=== PATIENT | male | born 1945 | race Caucasian/White ===

== ENCOUNTER 2017-01-25 02:04 | Emergency (ER) | payer MEDICARE, BC ==
[~2017-01-25] VITALS: Ht 182.9 cm; Wt 98.0 kg
[~2017-01-25 02:04] MED LIST: ADLT ASA LOW81 MG PO; ALTACE10 MG PO; AMLODIPINE10 MG PO; BAYER ASA325 MG OR; BAYER ASA325 MG PO; CLOPIDOGREL75 MG PO; FLOMAX0.4 MG OR; GLIPIZIDE10 MG PO; IRON325 M1 PO; KEFLEX500 MG PO; LANTUS100 MG/ML SC; LORTAB 5 PO; METFORMIN1000 MG PO; SIMVASTATIN40 MG PO; TOPROL XL50 MG PO
[2017-01-25] MEDS ORDERED: ELIQUIS5 MG PO (02:25)
[2017-01-25] MEDS ORDERED: ALLOPURINOL100 MG PO (02:26)
[2017-01-25] MEDS ORDERED: MAXZIDE-2537.5 MG/TA PO (02:27)
[2017-01-25 02:28] LABS: HEMATOCRIT 35.9 % (39.0-50.0); HEMOGLOBIN 11.8 g/dl (14.0-18.0); IMMATURE GRANULOCYTES 0.4 % (0.0-1.0); MEAN CELL VOLUME 91.3 fL CALC (80.0-100.0); MEAN CORPUSCULAR HGB CONC 32.9 g/L CALC (32.0-36.0); NEUT# 7.96 thou/uL (1.82-7.42); RED BLOOD COUNT 3.93 mill/uL (4.70-6.10); RED CELL DISTRI WIDTH 14.8 % (11.5-15.5)
[2017-01-25] MEDS ORDERED: CLONIDINE0.1 MG PO (02:29)
[2017-01-25] MEDS ORDERED: LIPITOR80 M1 PO (02:31)
[2017-01-25] MEDS ORDERED: ASPIRIN81 MG PO (02:32)
[2017-01-25] MEDS ORDERED: FUROSEMIDE20 MG PO (02:33)
[2017-01-25] MEDS ORDERED: TRESIBA FL100 UNIT/M SC (02:35)
[2017-01-25] MEDS ORDERED: NOVOLOG MIX SC (02:36)
[2017-01-25 02:40] LABS: ALBUMIN 3.8 g/dL (3.2-5.0); BILIRUBIN, TOTAL 0.5 mg/dL (0.0-1.4); CALCIUM 8.7 mg/dL (8.4-10.2); CREATININE 1.5 mg/dL (0.7-1.3); POTASSIUM 3.5 mmol/l (3.5-5.1); TOTAL PROTEIN 6.8 g/dL (6.3-8.2)
[2017-01-25 02:48] LABS: INTERNATIONAL NORMALIZED RATIO 1.1 RATIO (0.7-1.3); PROTHROMBIN TIME 12.2 SECONDS (9.0-12.5)
[2017-01-25 03:28] LABS: URINE BILIRUBIN - DIPSTICK NEGATIVE (NEGATIVE); URINE BLOOD DIPSTICK NEGATIVE (NEGATIVE); URINE CLARITY CLEAR; URINE COLOR YELLOW; URINE GLUCOSE - DIPSTICK NEGATIVE (NEGATIVE); URINE KETONE NEGATIVE (NEGATIVE); URINE LEUK ESTERASE NEGATIVE (NEGATIVE); URINE NITRITE - DIPSTICK NEGATIVE (Negative); URINE PROTEIN - DIPSTICK NEGATIVE (NEG-TRACE); URINE UROBILINOGEN - DIPSTICK 0.2 E.U./dL (0.2)
[2017-01-25 05:15] VITALS: BP 119/81
== END 2017-01-25 05:15 ==
LOC: ED 02:04 → ED-I 03:31 → ED 05:15
PROVIDERS: Emergency Medicine
DX: R07.9 Chest pain, unspecified (principal); I48.91 Unspecified atrial fibrillation; R94.31 Abnormal electrocardiogram [ECG] [EKG]; I10 Essential (primary) hypertension; I25.10 Atherosclerotic heart disease of native coronary artery without angina pectoris; Z95.5 Presence of coronary angioplasty implant and graft
CPT/HCPCS: J0282

== ENCOUNTER 2018-09-25 08:00 | Outpatient (REF) | payer MEDICARE, BC ==
[~2018-09-25 08:00] MED LIST changes: +ALLOPURINOL100 MG PO; +ASPIRIN81 MG PO; +CLONIDINE0.1 MG PO; +ELIQUIS5 MG PO; +FUROSEMIDE20 MG PO; +LIPITOR80 M1 PO; +MAXZIDE-2537.5 MG/TA PO; +NOVOLOG MIX SC; +TRESIBA FL100 UNIT/M SC
[2018-09-25 11:26] VITALS: BP 188/79
== END 2018-09-25 13:22 | disposition home or self-care (01) ==
LOC: INF 08:00
PROVIDERS: ATTEND Internal Medicine
DX: D63.1 Anemia in chronic kidney disease (principal); N18.3 Chronic kidney disease, stage 3 (moderate); D50.9 Iron deficiency anemia, unspecified
CPT/HCPCS: Q0138

== ENCOUNTER → 2018-10-02 | Outpatient (REF) | payer MEDICARE, BC ==
--- NOTE | 2018-10-02 10:39 | NUR ---
Patient is here for Procrit injection Current Procrit dose of 10,000 units on 10/02/18. First time on Procrit. Current Hgb on 10/02/18: 10.3g/dL Previous Hgb on 09/18/18: 8.5g/dL Previous Iron study on 10/02/18: 72ug/mL Next Iron Study on 12/30/18 Next Hgb due on 10/16/18 Pt will come back for next dose of 10,000 units on 10/16/18 Notes: Patient came in for his procrit dose. This is the first time patient is receiving procrit through [facility]. Pts BP today was 201/84mmHG. Pt had not taken his medications today. Instructed patient to take his medications as soon as he left today. Otherwise, patient stated that he was feeling good and was not experiencing any side effects. QOL assessment Side effects: No Dose adjustments: No
== END | disposition home or self-care (01) ==
LOC: INF 08:18
PROVIDERS: ATTEND Internal Medicine
DX: D63.1 Anemia in chronic kidney disease (principal); N18.3 Chronic kidney disease, stage 3 (moderate); D50.9 Iron deficiency anemia, unspecified
CPT/HCPCS: J0885

== ENCOUNTER → 2018-10-14 | Outpatient (REF) | payer MEDICARE, BC ==
[2018-10-14 08:38] LABS: MEAN CORPUSCULAR HGB 27.8 pG CALC (26.0-32.0); MEAN CORPUSCULAR HGB CONC 30.7 g/L CALC (32.0-36.0); RED BLOOD COUNT 3.96 mill/uL (4.70-6.10); RED CELL DISTRI WIDTH 21.5 % (11.5-15.5)
[2018-10-14 08:45] LABS: HEMATOCRIT 35.8 % (39.0-50.0); MEAN CELL VOLUME 90.4 fL CALC (80.0-100.0)
== END | disposition home or self-care (01) ==
LOC: LAB 08:04
PROVIDERS: ATTEND Internal Medicine
DX: D63.1 Anemia in chronic kidney disease (principal)

== ENCOUNTER 2018-10-30 09:50 | Outpatient (REF) | payer MEDICARE, BC ==
[2018-10-30 14:55] VITALS: BP 168/70
== END 2018-10-30 15:08 | disposition home or self-care (01) ==
LOC: INF 09:50
PROVIDERS: ATTEND Internal Medicine
DX: D63.1 Anemia in chronic kidney disease (principal); N18.3 Chronic kidney disease, stage 3 (moderate); D50.9 Iron deficiency anemia, unspecified

== ENCOUNTER 2019-02-27 15:05 | Emergency (ER) | payer MEDICARE, BC ==
[~2019-02-27] VITALS: Ht 182.9 cm; Wt 90.0 kg
[2019-02-27 15:32] LABS: HEMATOCRIT 34.7 % (39.0-50.0); HEMOGLOBIN 10.7 g/dl (14.0-18.0); MEAN CELL VOLUME 88.1 fL CALC (80.0-100.0); MEAN CORPUSCULAR HGB 27.2 pG CALC (26.0-32.0); MEAN CORPUSCULAR HGB CONC 30.8 g/L CALC (32.0-36.0); NEUT# 9.32 thou/uL (1.82-7.42); RED BLOOD COUNT 3.94 mill/uL (4.70-6.10); RED CELL DISTRI WIDTH 14.8 % (11.5-15.5)
[2019-02-27 15:55] LABS: INTERNATIONAL NORMALIZED RATIO 1.2 RATIO (0.7-1.3)
[2019-02-27 16:03] LABS: CREATININE 1.7 mg/dL (0.7-1.3); POTASSIUM 3.4 mmol/l (3.5-5.1)
[2019-02-27] MEDS ORDERED: LISINOPRIL20 MG PO (18:22)
[2019-02-27] MEDS ORDERED: GABAPENTIN100 MG PO (18:22)
[2019-02-27] MEDS ORDERED: NOVOLOG FL100 UNIT/M SC (18:36)
[2019-02-27] MEDS ORDERED: HYDRALAZINE10 MG PO (18:36)
[2019-02-27] MEDS ORDERED: CYMBALTA30 MG PO (18:37)
[2019-02-27] MEDS ORDERED: BUMETANIDE2 MG PO (18:37)
[2019-02-27] MEDS ORDERED: KAPSPARGO SPRIN25 MG (18:53)
[2019-02-27 19:01] VITALS: BP 145/80
== END 2019-02-27 19:01 | disposition left against medical advice (07) ==
LOC: ED 15:05 → ED-I 15:14 → ED 15:14 → ED-I 17:10 → ED 19:01
PROVIDERS: Family Medicine
DX: G45.9 Transient cerebral ischemic attack, unspecified (principal); I10 Essential (primary) hypertension; E11.9 Type 2 diabetes mellitus without complications; Z91.19 Patient's noncompliance with other medical treatment and regimen; Z95.5 Presence of coronary angioplasty implant and graft
CPT/HCPCS: Q9967

== ENCOUNTER 2019-04-19 16:33 | Emergency (ER) | payer MEDICARE, BC ==
[~2019-04-19] VITALS: Ht 182.9 cm; Wt 98.0 kg
[~2019-04-19 16:33] MED LIST changes: +BUMETANIDE2 MG PO; +CYMBALTA30 MG PO; +GABAPENTIN100 MG PO; +HYDRALAZINE10 MG PO; +KAPSPARGO SPRIN25 MG; +LISINOPRIL20 MG PO; +NOVOLOG FL100 UNIT/M SC
[2019-04-19 17:11] LABS: IMMATURE GRANULOCYTES 1.2 % (0.0-5.0); MEAN CELL VOLUME 90.4 fL CALC (80.0-100.0); MEAN CORPUSCULAR HGB 28.4 pG CALC (26.0-32.0); MEAN CORPUSCULAR HGB CONC 31.4 g/L CALC (32.0-36.0); NEUT# 12.96 thou/uL (1.82-7.42); RED BLOOD COUNT 2.82 mill/uL (4.70-6.10); RED CELL DISTRI WIDTH 18.7 % (11.5-15.5)
[2019-04-19 17:12] LABS: HEMATOCRIT 25.5 % (39.0-50.0)
[2019-04-19 17:34] LABS: ALBUMIN 3.3 g/dL (3.2-5.0); CREATININE 2.5 mg/dL (0.7-1.3); POTASSIUM 3.2 mmol/l (3.5-5.1); TOTAL PROTEIN 6.4 g/dL (6.3-8.2)
[2019-04-19 17:40] LABS: BILIRUBIN, TOTAL 0.6 mg/dL (0.0-1.4)
[2019-04-19 17:44] LABS: INTERNATIONAL NORMALIZED RATIO 1.3 RATIO (0.7-1.3); PROTHROMBIN TIME 13.6 SECONDS (9.0-12.5)
[2019-04-19] MEDS ORDERED: COLCHICINE0.6 M2 PO (18:04)
[2019-04-19] MEDS ORDERED: RAYALDEE30 MCG PO (18:10)
[2019-04-19] MEDS ORDERED: K-DUR/KLOR-CON20 MEQ PO (18:10)
[2019-04-19] MEDS ORDERED: SUCRALFATE1 GM PO (18:11)
[2019-04-19 18:50] VITALS: BP 104/73
[2019-04-19 18:53] VITALS: BP 104/73
== END 2019-04-19 18:53 | disposition short-term general hospital (02) ==
LOC: ED 16:33
PROVIDERS: Emergency Medicine
PROC: 30233N1 Transfusion of Nonautologous Red Blood Cells into Peripheral Vein, Percutaneous Approach (ICD-10-PCS; principal; 2019-04-19)
DX: K92.2 Gastrointestinal hemorrhage, unspecified (principal); D64.9 Anemia, unspecified; N17.9 Acute kidney failure, unspecified; R06.02 Shortness of breath; D72.829 Elevated white blood cell count, unspecified; I10 Essential (primary) hypertension; E11.9 Type 2 diabetes mellitus without complications; Z79.4 Long term (current) use of insulin; R07.9 Chest pain, unspecified
CPT/HCPCS: P9016; S0164

== ENCOUNTER 2020-01-10 22:53 | Emergency (ER) | payer MEDICARE, BC ==
[~2020-01-10 22:53] MED LIST changes: +APRESOLINE50 MG PO; +COLCHICINE0.6 M2 PO; +DEMADEX10 MG PO; -HYDRALAZINE10 MG PO; -LISINOPRIL20 MG PO; +METOPROL TAR100 MG PO; +NORVASC5 M1 PO; +POTASSIUM CHLO10 MEQ PO; +PROTONIX40 M2 PO; +ROCALTROL0.25 MCG PO; +SUCRALFATE1 GM PO; -TOPROL XL50 MG PO; +ZESTRIL10 MG PO
[2020-01-10] MEDS ORDERED: CEPHALEXIN500 MG PO (23:35)
[2020-01-10 23:36] LABS: HEMOGLOBIN 8.2 g/dl (14.0-18.0); IMMATURE GRANULOCYTES 0.7 % (0.0-5.0); MEAN CELL VOLUME 93.3 fL CALC (80.0-100.0); MEAN CORPUSCULAR HGB 30.7 pG CALC (26.0-32.0); MEAN CORPUSCULAR HGB CONC 32.9 g/dL CAL (32.0-36.0); NEUT# 10.24 thou/uL (1.82-7.42); RED BLOOD COUNT 2.67 mill/uL (4.70-6.10); RED CELL DISTRI WIDTH 14.1 % (11.5-15.5)
[2020-01-10] MEDS ORDERED: FUROSEMIDE20 MG PO (23:36)
[2020-01-10] MEDS ORDERED: HYDROCHLOROT25 MG PO (23:36)
[2020-01-10 23:37] LABS: HEMATOCRIT 24.9 % (39.0-50.0)
[2020-01-10] MEDS ORDERED: COZAAR100 MG PO (23:37)
[2020-01-10] MEDS ORDERED: OZEMPIC2 MG/1.5 M SC (23:38)
[2020-01-10] MEDS ORDERED: MICARDIS H80 MG/25 M PO (23:39)
[2020-01-10 23:47] LABS: ACT PARTIAL THROMBO TIME 36.6 SECONDS (20.0-32.5); ALBUMIN 3.2 g/dL (3.2-5.0); BILIRUBIN, TOTAL 0.7 mg/dL (0.0-1.4); INTERNATIONAL NORMALIZED RATIO 1.1 RATIO (0.7-1.3); POTASSIUM 3.4 mmol/l (3.5-5.1); PROTHROMBIN TIME 11.5 SECONDS (9.0-12.5); TOTAL PROTEIN 6.3 g/dL (6.3-8.2)
[2020-01-11 00:55] VITALS: BP 159/70
[2020-01-11 01:24] VITALS: BP 153/69
[2020-01-11 02:03] VITALS: BP 157/60
== END 2020-01-11 02:20 ==
LOC: ED 22:53
PROC: 30233N1 Transfusion of Nonautologous Red Blood Cells into Peripheral Vein, Percutaneous Approach (ICD-10-PCS; principal; 2020-01-11)
DX: L76.22 Postprocedural hemorrhage of skin and subcutaneous tissue following other procedure (principal); D62 Acute posthemorrhagic anemia; E11.9 Type 2 diabetes mellitus without complications; I10 Essential (primary) hypertension; Y83.8 Other surgical procedures as the cause of abnormal reaction of the patient, or of later complication, without mention of misadventure at the time of the procedure; Z79.01 Long term (current) use of anticoagulants; Z79.4 Long term (current) use of insulin
CPT/HCPCS: P9016

== ENCOUNTER 2020-04-26 21:01 | Inpatient (IN) | payer MEDICARE, BC ==
[~2020-04-26] VITALS: Ht 182.9 cm; Wt 95.5 kg
[~2020-04-26 21:01] MED LIST changes: +CEPHALEXIN500 MG PO; +COZAAR100 MG PO; +HYDROCHLOROT25 MG PO; +MICARDIS H80 MG/25 M PO; +OZEMPIC2 MG/1.5 M SC
[2020-04-26] MEDS ORDERED: METOPROLOL SUC200 MG PO (21:37)
[2020-04-26] MEDS ORDERED: AMITRIPTYLIN25 MG PO (21:39)
[2020-04-26 22:18] LABS: IMMATURE GRANULOCYTES 1.4 % (0.0-5.0); MEAN CORPUSCULAR HGB 30.6 pG CALC (26.0-32.0); MEAN CORPUSCULAR HGB CONC 29.8 g/dL CAL (32.0-36.0); NEUT# 15.74 thou/uL (1.82-7.42); RED BLOOD COUNT 1.86 mill/uL (4.70-6.10); RED CELL DISTRI WIDTH 19.2 % (11.5-15.5)
[2020-04-26 22:21] LABS: HEMATOCRIT 19.1 % (39.0-50.0); HEMOGLOBIN 5.7 g/dl (14.0-18.0); MEAN CELL VOLUME 102.7 fL CALC (80.0-100.0)
[2020-04-26 22:35] LABS: ALBUMIN 3.4 g/dL (3.2-5.0); BILIRUBIN, TOTAL 0.4 mg/dL (0.0-1.4); CREATININE 1.6 mg/dL (0.7-1.3); POTASSIUM 3.7 mmol/l (3.5-5.1); TOTAL PROTEIN 5.9 g/dL (6.3-8.2)
[2020-04-26 23:32] LABS: D-DIMER 0.17 mg/L (0.19-0.60)
[2020-04-26 23:37] LABS: ACT PARTIAL THROMBO TIME 31.4 SECONDS (20.0-32.5); INTERNATIONAL NORMALIZED RATIO 1.3 RATIO (0.7-1.3); PROTHROMBIN TIME 12.4 SECONDS (9.0-12.5)
[2020-04-26 23:39] VITALS: BP 141/57
[2020-04-26 23:48] LABS: URINE BILIRUBIN - DIPSTICK NEGATIVE (NEGATIVE); URINE BLOOD DIPSTICK NEGATIVE (NEGATIVE); URINE COLOR YELLOW; URINE GLUCOSE - DIPSTICK 250 mg/dL (NEGATIVE); URINE KETONE NEGATIVE (NEGATIVE); URINE LEUK ESTERASE NEGATIVE (NEGATIVE); URINE NITRITE - DIPSTICK NEGATIVE (Negative); URINE PROTEIN - DIPSTICK NEGATIVE (NEG-TRACE); URINE SPECIFIC GRAVITY 1.015; URINE UROBILINOGEN - DIPSTICK 0.2 E.U./dL (0.2)
[2020-04-27] VITALS (13 sets, daily range): BP systolic 124–158; BP diastolic 61–79
[2020-04-27 04:53] LABS: HEMATOCRIT 22.2 % (39.0-50.0); MEAN CELL VOLUME 99.6 fL CALC (80.0-100.0); MEAN CORPUSCULAR HGB 30.9 pG CALC (26.0-32.0); MEAN CORPUSCULAR HGB CONC 31.1 g/dL CAL (32.0-36.0); NEUT# 14.52 thou/uL (1.82-7.42); RED BLOOD COUNT 2.23 mill/uL (4.70-6.10)
[2020-04-27 05:03] LABS: CREATININE 1.6 mg/dL (0.7-1.3); POTASSIUM 3.1 mmol/l (3.5-5.1)
[2020-04-27 05:06] LABS: HEMOGLOBIN 6.9 g/dl (14.0-18.0)
[2020-04-27] MEDS ORDERED: TRESIBA FL200 UNIT/M (12:11)
[2020-04-27 14:23] LABS: HEMATOCRIT 25.2 % (39.0-50.0)
[2020-04-28] VITALS (10 sets, daily range): BP systolic 125–175; BP diastolic 64–78
[2020-04-28 04:51] LABS: HEMATOCRIT 24.9 % (39.0-50.0); HEMOGLOBIN 7.8 g/dl (14.0-18.0); MEAN CELL VOLUME 97.3 fL CALC (80.0-100.0); MEAN CORPUSCULAR HGB 30.5 pG CALC (26.0-32.0); MEAN CORPUSCULAR HGB CONC 31.3 g/dL CAL (32.0-36.0); NEUT# 10.37 thou/uL (1.82-7.42); RED BLOOD COUNT 2.56 mill/uL (4.70-6.10); RED CELL DISTRI WIDTH 18.5 % (11.5-15.5)
[2020-04-28 05:14] LABS: ALKALINE PHOSPHATASE 82 u/l (38-126); ANION GAP 11 (6-22 (CALC)); BUN 51 mg/dL (8-23); BUN/CREATININE RATIO 39 (12-20 (CALC)); CARBON DIOXIDE 24 mmol/l (22-30); CHLORIDE 108 mmol/l (95-108); CREATININE 1.3 mg/dL (0.7-1.3); GFR 54 ML/MIN (>=60 (CALC)); GFR FOR AFR.AMER. > 60 ML/MIN (>=60 (CALC)); POTASSIUM 3.7 mmol/l (3.5-5.1); SGOT/AST 22 u/l (19-48); SODIUM 138 mmol/l (137-146); TOTAL PROTEIN 5.3 g/dL (6.3-8.2)
[2020-04-28 05:25] LABS: BILIRUBIN, TOTAL 0.6 mg/dL (0.0-1.4)
[2020-04-28] MEDS ORDERED: GOLYTEL1 PO ×2 (11:55)
[2020-04-28] MEDS ORDERED: PROTONIX40 M2 PO (11:55)
== END 2020-04-28 15:27 | disposition home or self-care (01) | DRG 812 ==
LOC: ED 21:01 → ED-I 22:50 → ED 23:01 → MS2 23:02
PROVIDERS: Family Medicine; Nurse Practitioner; ADMIT Internal Medicine; ATTEND Internal Medicine
PROC: 30233N1 Transfusion of Nonautologous Red Blood Cells into Peripheral Vein, Percutaneous Approach (ICD-10-PCS; principal; 2020-04-27)
PROC: 30233N1 Transfusion of Nonautologous Red Blood Cells into Peripheral Vein, Percutaneous Approach (ICD-10-PCS; 2020-04-27)
PROC: 30233N1 Transfusion of Nonautologous Red Blood Cells into Peripheral Vein, Percutaneous Approach (ICD-10-PCS; 2020-04-28)
DX: D62 Acute posthemorrhagic anemia (principal); K92.2 Gastrointestinal hemorrhage, unspecified; J98.11 Atelectasis; I48.0 Paroxysmal atrial fibrillation; I12.9 Hypertensive chronic kidney disease with stage 1 through stage 4 chronic kidney disease, or unspecified chronic kidney disease; E11.22 Type 2 diabetes mellitus with diabetic chronic kidney disease; N18.3 Chronic kidney disease, stage 3 (moderate); E87.6 Hypokalemia; I25.10 Atherosclerotic heart disease of native coronary artery without angina pectoris; E78.5 Hyperlipidemia, unspecified; K59.00 Constipation, unspecified; M10.9 Gout, unspecified; Z95.5 Presence of coronary angioplasty implant and graft; Z95.0 Presence of cardiac pacemaker; Z79.82 Long term (current) use of aspirin; Z79.4 Long term (current) use of insulin; Z20.828 Contact with and (suspected) exposure to other viral communicable diseases; Z79.01 Long term (current) use of anticoagulants
CPT/HCPCS: P9016; S0164

== ENCOUNTER 2020-05-04 08:32 | Day surgery (SDC) | payer MEDICARE, BC ==
[~2020-05-04] VITALS: Ht 182.9 cm; Wt 96.2 kg
[~2020-05-04 08:32] MED LIST changes: +AMITRIPTYLIN25 MG PO; +GOLYTEL1 PO; +METOPROLOL SUC200 MG PO; +TRESIBA FL200 UNIT/M
[2020-05-04 09:05] LABS: HEMATOCRIT 28.9 % (39.0-50.0); HEMOGLOBIN 8.8 g/dl (14.0-18.0); IMMATURE GRANULOCYTES 0.6 % (0.0-5.0); MEAN CELL VOLUME 94.1 fL CALC (80.0-100.0); MEAN CORPUSCULAR HGB 28.7 pG CALC (26.0-32.0); MEAN CORPUSCULAR HGB CONC 30.4 g/dL CAL (32.0-36.0); NEUT# 10.1 thou/uL (1.82-7.42); RED BLOOD COUNT 3.07 mill/uL (4.70-6.10); RED CELL DISTRI WIDTH 17.2 % (11.5-15.5)
[2020-05-04 09:28] LABS: PROTHROMBIN TIME 10.4 SECONDS (9.0-12.5)
[2020-05-04 09:39] LABS: CREATININE 1.6 mg/dL (0.7-1.3); POTASSIUM 3.6 mmol/l (3.5-5.1)
[2020-05-04 10:41] VITALS: BP 153/75
== END 2020-05-04 11:00 | disposition home or self-care (01) ==
LOC: ENDO 08:32 → ORM 10:00 → ENDO 11:00
PROVIDERS: ATTEND Surgery
PROC: 0DJ08ZZ Inspection of Upper Intestinal Tract, Via Natural or Artificial Opening Endoscopic (ICD-10-PCS; principal; 2020-05-04)
PROC: 0DJD8ZZ Inspection of Lower Intestinal Tract, Via Natural or Artificial Opening Endoscopic (ICD-10-PCS; 2020-05-04)
DX: D50.0 Iron deficiency anemia secondary to blood loss (chronic) (principal); K29.70 Gastritis, unspecified, without bleeding; I12.9 Hypertensive chronic kidney disease with stage 1 through stage 4 chronic kidney disease, or unspecified chronic kidney disease; E11.22 Type 2 diabetes mellitus with diabetic chronic kidney disease; N18.9 Chronic kidney disease, unspecified; I25.10 Atherosclerotic heart disease of native coronary artery without angina pectoris; E78.5 Hyperlipidemia, unspecified; I48.91 Unspecified atrial fibrillation; Z79.4 Long term (current) use of insulin; Z95.5 Presence of coronary angioplasty implant and graft; Z79.01 Long term (current) use of anticoagulants; Z95.0 Presence of cardiac pacemaker; Z86.010 Personal history of colon polyps; Z20.828 Contact with and (suspected) exposure to other viral communicable diseases

== ENCOUNTER 2020-05-05 07:02 | Inpatient (IN) | payer MEDICARE, BC ==
[2020-05-05] VITALS (8 sets, daily range): BP systolic 143–162; BP diastolic 63–79
[~2020-05-05] VITALS: Ht 182.9 cm; Wt 96.2 kg
--- NOTE | 2020-05-05 10:05 | NUR ---
PT ARRIVED TO [facility] ROOM 272 VIA STRETCHER IN STABLE CONDITION ACCOMPAINED BY OR STAFF. PT AMBULATED TO BED WITH STEADY GAIT. PT IS A/O X3. INTRODUCED SELF TO PT AND DISCUSSED POC. RESPIRATIONS ARE EVEN AND UNLABORED WITH NO SIGNS OF DISTRESS NOTED. LUNG SOUNDS ARE CLEAR. HEART RHYTHM IS NORMAL. BOWEL SOUNDS ARE ACTIVE IN ALL QUADRANTS, LAST REPORTED BM 05/05/2020. RADIAL AND PEDAL PULSES ARE STRONG WITH NORMAL CAPILLARY REFILL. #20 IN LAC FLUSHED, SITE APPEARS HEALTHY AND PATENT. PT DENIES OF ANY PAIN OR DISCOMFORTS AT THIS TIME. PT ADDMITTED FROM OR. PT PREVIOUS HAD COLONOSCOPY 05/05/20. PT TO GO BACK TO OR TOMORROW FOR LAPAROSCOPIC ASSSISTED RIGHT HEMICOLECTOMY. PT DENIES ANY PAIN OR DISCOMFORTS AT THIS TIME. PT DENIES ANY ALLERGIES, ALLERGY BAND APPLIED. PT ORIENTED TO ROOM AND CALL LIGHT SYSTEM. ALL SFAETY PRECAUTIONS ARE IN PLACE WITH CALL LIGHT IN REACH. WILL CONTINUE TO MONITOR
[2020-05-05 12:06] LABS: ALBUMIN 3.4 g/dL (3.2-5.0); BILIRUBIN, TOTAL 0.7 mg/dL (0.0-1.4); CREATININE 1.4 mg/dL (0.7-1.3); MAGNESIUM 1.9 mg/dL (1.6-2.3); POTASSIUM 3.6 mmol/l (3.5-5.1); TOTAL PROTEIN 5.9 g/dL (6.3-8.2)
--- NOTE | 2020-05-05 15:28 | NUR ---
PT RESTING IN SEMI FOWLERS POSTIION WATCHING TV WITH AT BEDSIDE. RESPRIATIONS ARE EVEN AND UNLABORED WITH NO SIGNS OF DISTRESS NOTED. IVF RUNNING PER ORDER, SITE APPEARS HEALTHY AND PATENT.PT DENIES ANY PAIN OR DISCOMFORTS AT THIS TIME. ALL SAFETY PRECAUTIONS ARE IN PLACE WITH CALL LIGHT IN REACH. WILL CONTINUE TO MONITOR
--- NOTE | 2020-05-05 16:00 | NUR ---
[employer] ASKED FACUNDO OROZCO IF PT WAS TO BE ON TELE MONITORING. NO ORDERS FOR PT TO BE PLACED ON TELE MONITORING
--- NOTE | 2020-05-05 18:20 | NUR ---
OBTAINED CONSENT FOR LAPAROSCOPIC ASSISTED RIGHT HEMICOLECTOMY. PT VERABALIZED UNDERSTANDING AND STATED "THE DOCTOR SPOKE WITH ME ABOUT IT DOWN STAIRS."
--- NOTE | 2020-05-05 19:35 | NUR ---
PT RESTING IN BED, NO SIGNS OF DISTRESS NOTED, RESP EVEN AND UNLABORED. PT ALERT AND ORIENTED X3, DISCUSSED POC, PT VOICES NO NEEDS OR COMPLAINTS AT THIS TIME, ASSESSMENT COMPLETED, CALL LIGHT IN REACH,CONTINUE TO MONITOR.
--- NOTE | 2020-05-05 20:51 | NUR ---
PT RESTING IN BED ON HIS CELLPHONE, DISCUSSED EVENING MEDS AND INSULIN, PT STATES HE TAKES 24 UNITS OF NOVOLOG, JUICE OFFERED, D5 1/2NS INFUSING. CALL LIGHT IN REACH,CONTINUE TO MONITOR.
--- NOTE | 2020-05-05 23:55 | NUR ---
PT RESTING IN BED, DISCUSSED NPO AFTER MIDNIGHT, PT AGREES, APPLE JUICE PROVIDED AND PO FLUIDS REMOVED. CALL LIGHT IN REACH,CONTINUE TO MONITOR.
[2020-05-06] VITALS (11 sets, daily range): BP systolic 119–153; BP diastolic 63–75
--- NOTE | 2020-05-06 03:56 | NUR ---
PT RESTING IN BED WITH EYES CLOSED, NO SIGNS OF DISTRESS NOTED, RESP EVEN AND UNLABORED. CALL LIGHT IN REACH,CONTINUE TO MONITOR.
[2020-05-06 05:12] LABS: HEMATOCRIT 26.4 % (39.0-50.0); HEMOGLOBIN 8.1 g/dl (14.0-18.0); MEAN CELL VOLUME 93.6 fL CALC (80.0-100.0); MEAN CORPUSCULAR HGB 28.7 pG CALC (26.0-32.0); MEAN CORPUSCULAR HGB CONC 30.7 g/dL CAL (32.0-36.0); RED BLOOD COUNT 2.82 mill/uL (4.70-6.10); RED CELL DISTRI WIDTH 16.8 % (11.5-15.5)
[2020-05-06 05:29] LABS: ANION GAP 9 (6-22 (CALC)); BUN 10 mg/dL (8-23); BUN/CREATININE RATIO 9 (12-20 (CALC)); CARBON DIOXIDE 26 mmol/l (22-30); CHLORIDE 107 mmol/l (95-108); CREATININE 1.2 mg/dL (0.7-1.3); GFR 59 ML/MIN (>=60 (CALC)); GFR FOR AFR.AMER. > 60 ML/MIN (>=60 (CALC)); MAGNESIUM 1.6 mg/dL (1.6-2.3); POTASSIUM 3.2 mmol/l (3.5-5.1); SODIUM 139 mmol/l (137-146)
--- NOTE | 2020-05-06 07:18 | NUR ---
RECIEVED REPORT FROM ADAM HDZ. PT SLEEPING IN SEMI FOLWERS POSITION UPON ENTERING ROOM. PT IS EASY TO AWAKEN. INTRODUCED SELF TO PT AND DISCUSSED POC. PT IS A/O X3. ASSESSMENT AND VITALS COMPLETED AT THIS TIME. BP 144/68, HR 70, O2 98% ON ROOM AIR.RESPIRATIONS ARE EVENA ND UNLABORED WIHT NO SIGNS OF DISTRESS NOTED. LUNG SOUND SARE CLEAR. HEART RHYTHM IS NORMAL. BOWEL SOUND SRE ACTIVE IN ALL QUADRANTS, LAST REPORTED BM 05/05/2020. RADIAL AND PEDAL PULSES ARE STRONG WITH NORMAL CAPILLARY REFILL.#20G IN LAC RUNNING WITH IVF PER ORDER, SITE APPEARS HEALTHY AND PATENT.PT IS SCHEDULED TO GO BACK TO OR AT 0945. PT NPO SINCE MIDNIGHT. PT DENIES ANY PAIN OR DISCOMFORTS AT THIS TIME. ALL SAFETY PRECAUTIONS ARE IN PLACE WIHT CALL LIGHT IN REACH.
--- NOTE | 2020-05-06 08:30 | NUR ---
PT TRANSPORTED TO OR VIA BED IN STABLE CONDITION ACCOMPAINED BY OR STAFF. ANTIBIOTICS AND POTASSIUM SENT WITH OR. REMAINS IN ROOM WAINTING FOR PT .
--- NOTE | 2020-05-06 12:17 | NUR ---
DR MUÑOZ IN ROOM SPEAKING WITH
[2020-05-06 13:20] LABS: HEMOGLOBIN 8.1 g/dl (14.0-18.0); RED BLOOD COUNT 2.71 mill/uL (4.70-6.10)
[2020-05-06 13:21] LABS: HEMATOCRIT 25.5 % (39.0-50.0); MEAN CELL VOLUME 94.1 fL CALC (80.0-100.0); MEAN CORPUSCULAR HGB 29.9 pG CALC (26.0-32.0); MEAN CORPUSCULAR HGB CONC 31.8 g/dL CAL (32.0-36.0); RED CELL DISTRI WIDTH 16.5 % (11.5-15.5)
[2020-05-06 13:38] LABS: ALKALINE PHOSPHATASE 118 u/l (38-126); BILIRUBIN, TOTAL 0.8 mg/dL (0.0-1.4); BUN 9 mg/dL (8-23); BUN/CREATININE RATIO 8 (12-20 (CALC)); CARBON DIOXIDE 22 mmol/l (22-30); CHLORIDE 110 mmol/l (95-108); CREATININE 1.2 mg/dL (0.7-1.3); GFR 59 ML/MIN (>=60 (CALC)); GFR FOR AFR.AMER. > 60 ML/MIN (>=60 (CALC)); SGOT/AST 17 u/l (19-48); SODIUM 137 mmol/l (137-146); TOTAL PROTEIN 4.8 g/dL (6.3-8.2)
[2020-05-06 13:39] LABS: ALBUMIN 2.5 g/dL (3.2-5.0); ANION GAP 9 (6-22 (CALC)); POTASSIUM 4.1 mmol/l (3.5-5.1)
--- NOTE | 2020-05-06 13:51 | NUR ---
PT ARRIVED BACK TO [facility] ROOM 272 VIA BED IN STABLE CONDITION ACCOMPAINED BY OR STAFF. PT IS A/O BUT VERY DROWSY. RESPIRATIONS ARE EVEN AND UNLABORED WITH NO SIGNS OF DISTRESS NOTED. LUNG SOUNDS ARE CLEAR. HEART RHYTHM IS NORMAL. PT PRESENTS WITH 4 SURGICAL SITES. 3 SMALL SURGICAL SIGHTS IN RLQ, LLQ AND UPPER ABD.1 LONG COMING UP FROM NAVEL. DRESSING REMAIN CDI AT THIS TIME. ABD BINDER APPLIED WITH ASSISTANCE FROM OR STAFF. #20 IN LAC RUNNING WITH IVF PER ORDER, SITE APPEARS HEALTHY AND PATENT.#20G IN RFA STARTED BY OR STAFF, POTASSIUM RUNNING PER ORDER, SITE APPEARS HEALTHY AND PATENT. PT COMPLAINS OF "12/10" PAIN IN ABD. DILAUDID ADMINISTERED BY OR STAFF EARLIER. WRITTER INFORMED PT THAT PAIN MEDICATION WAS NOT AVAILABLE YET. PT VERBALIZED UNDERSTANDING. WILSON CATHATER PLACE ON 05/06/20 BY OR STAFF. WILSON CATHATER REMAINS IN PLACE WITH TUBING UNOBSTRUCTED AND FLOWING WITH GARVITY. ALL SAFETY PRECAUTIONS REMAIN IN PLACE WITH CALL LIGHT IN REACH AND AT BEDSIDE. WILL CONTINUE TO MONITOR.
--- NOTE | 2020-05-06 16:00 | NUR ---
PT RESTING IN SEMI FOLWERS POSITION WATCHING TV. RESPIRATIONS ARE EVEN AND UNLABORED WITH NO SIGNS OF DISTRES NOTED. IVF RUNNING PER ORDER, SITE APPEARS HEALTHY AND PATENT. PT IS A/O BUT DROWSY. WILSON CATHATER IN PLACE WITH TUBING UNOBSTRUCTED. ALL SAFETY PRECAUTIONS ARE IN PLACE WITH CALL LIGHT IN REACH. WILL CONTINUE TO MONITOR.
--- NOTE | 2020-05-06 17:01 | NUR ---
HOME MEDICATIONS BROUGHT BY AND SENT TO PHARMACY TO VERIFY
--- NOTE | 2020-05-06 17:28 | NUR ---
PT COMPLAINS OF 8/10 PAIN IN ABD. DILAUDID TO BE ADMINISTERED. RESPIRATIONS ARE EVEN AND UNLABORED WITH NO SIGNS OF DISTRESS NOTED. ALL SAFETY PRECAUTIONS ARE IN PLACE WITH CALL LIGHT IN REACH. WILL CONTINUE TO MONITOR
--- NOTE | 2020-05-06 18:06 | NUR ---
REASESSMENT OF PAIN RESUTLING IN 01/20. RESPIRATIONS ARE EVEN AND UNLABROED WITH NO SIGNS OF DISTRESS NOTED. WILSON CATHATER IN PLACE WITH CALL LIGHT IN REACH. ALL SAEFTY PRECAUTIONS ARE IN PLACE WITH CALL LIGHT IN REACH. WILL CONTINUE TO MONITOR
[2020-05-06 18:19] LABS: HEMATOCRIT 27.9 % (39.0-50.0); HEMOGLOBIN 8.7 g/dl (14.0-18.0); IMMATURE GRANULOCYTES 0.5 % (0.0-5.0); MEAN CELL VOLUME 94.6 fL CALC (80.0-100.0); MEAN CORPUSCULAR HGB 29.5 pG CALC (26.0-32.0); MEAN CORPUSCULAR HGB CONC 31.2 g/dL CAL (32.0-36.0); NEUT# 24.13 thou/uL (1.82-7.42); RED BLOOD COUNT 2.95 mill/uL (4.70-6.10); RED CELL DISTRI WIDTH 17.1 % (11.5-15.5)
[2020-05-06 18:42] LABS: ALBUMIN 2.9 g/dL (3.2-5.0); ALKALINE PHOSPHATASE 142 u/l (38-126); ANION GAP 11 (6-22 (CALC)); BUN 11 mg/dL (8-23); BUN/CREATININE RATIO 9 (12-20 (CALC)); CARBON DIOXIDE 21 mmol/l (22-30); CHLORIDE 109 mmol/l (95-108); CREATININE 1.2 mg/dL (0.7-1.3); GFR 59 ML/MIN (>=60 (CALC)); GFR FOR AFR.AMER. > 60 ML/MIN (>=60 (CALC)); POTASSIUM 4.2 mmol/l (3.5-5.1); SODIUM 137 mmol/l (137-146); TOTAL PROTEIN 5.4 g/dL (6.3-8.2)
[2020-05-06 18:48] LABS: SGOT/AST 31 u/l (19-48)
--- NOTE | 2020-05-06 20:00 | NUR ---
PATIENT IS ALERT AND ORIENTED X3. ABLE TO MAKE NEEDS WARM. SKIN WARM AND DRY. DRESSING WITH ABDOMINAL BINDER IN PLACE. WILSON CATHETER IN PLACE, SECURED AND DRAINING STRAW COLORED URINE TO GRAVITY. DENIES PAIN AT THIS TIME. PATIENT IS FORGETFUL, HAS ASKED FOOD BAGGING MACHINE OPERATOR IF HE HAS GONE TO SURGERY YET. PATIENT HAS BEEN OUT OF OF SURGERY SINCE MY SHIFT. CURRENTLY NPO EXCEPT FOR ICE CHIPS AND SIPS OF WATER WITH MEDICATION. FALL RISK. D5 1/2 NORMAL SALINE INFUSING AT 125CC/HR TO IV ACCESS #20 RIGHT AC. #20 RIGHT FOREARM. BOTH VAD PATENT WITH DRESSING CLEAN DRY AND INTACT. COMPLIANT WITH MEDICATIONS. SCDS IN PLACE. BED IN LOW POSITION. CALL LIGHT WITHIN REACH. PATIENT UP TO CHAIR AT 1999. STILL UP TO CHAIR AT THIS TIME.
--- NOTE | 2020-05-07 00:01 | NUR ---
PATIENT RESTING WITH EYES CLOSED. RESPIRATIONS EASY. NO ACUTE DISTRESS OBSERVED. BED IN LOW POSITION. CALL LIGHT WITHIN REACH.
--- NOTE | 2020-05-07 03:12 | NUR ---
PATIENT RESTING IN BED WITH EYES CLOSED. RESPIRATIONS EASY. O2 2L NC IN PLACE. VAD INFUSING FLUIDS ORDERED. NO COMPLAINTS THIS SHIFT. BED IN LOW POSITION. CALL LIGHT WITHIN REACH.
[2020-05-07 04:46] VITALS: BP 144/71
[2020-05-07 05:01] LABS: HEMATOCRIT 26.6 % (39.0-50.0); HEMOGLOBIN 8.4 g/dl (14.0-18.0); IMMATURE GRANULOCYTES 0.7 % (0.0-5.0); MEAN CORPUSCULAR HGB 29.7 pG CALC (26.0-32.0); MEAN CORPUSCULAR HGB CONC 31.6 g/dL CAL (32.0-36.0); NEUT# 21.64 thou/uL (1.82-7.42); RED BLOOD COUNT 2.83 mill/uL (4.70-6.10); RED CELL DISTRI WIDTH 16.8 % (11.5-15.5)
[2020-05-07 05:27] LABS: CREATININE 1.4 mg/dL (0.7-1.3); POTASSIUM 4.1 mmol/l (3.5-5.1)
--- NOTE | 2020-05-07 07:00 | NUR ---
REPORT RECEIVED FROM CHUCK FLEMING;PT RESTING IN SEMI FOWLERS POSITION;INTRODUCED SELF TO PT AND POC DISCUSSED;RESPIRATIONS EVEN AND UNLABORED ON RA;PT DENIES ANY CURRENT PAIN OR NEEDS;IV FLUIDS INFUSING WITH EASE PER ORDER;ALL SAFETY PRECAUTIONS REMAIN IN PLACE WITH BED IN THE LOWEST POSITION AND CALL LIGHT IN REACH;WILL CONTINUE TO MONITOR
--- NOTE | 2020-05-07 07:17 | NUR ---
AT 0650 WILSON CATHETER DISCONTINUED. TOLERATED WELL. 600CC STRAW URINE IN BAG. ICE CHIPS AT BEDSIDE. IVF INFUSING ORDERED. BED IN LOW POSITION. CALL LIGHT WITHIN REACH.
[2020-05-07 08:04] VITALS: BP 168/80
--- NOTE | 2020-05-07 08:05 | NUR ---
PT RESTING IN SEMI FOWLERS POSITION,A&O X3;PT RE-POSITIONED INTO RECLINER AT THIS TIME;VS OBTAINED AND ASSESSMENT COMPLETED;PT DENIES ANY CURRENT PAIN OR DISCOMFORTS,PAIN SCALE AND REPORTING EDUCATED;PT POD #1 HEMICOLECTOMY;RESPIRATIONS EVEN AND UNLABORED ON RA,CLEAR LUNG SOUNDS;I.S. AT BEDSIDE AND PT EDUCATED ON USAGE 10X PER HOUR;ABDOMEN DISTENDED/SOFT ON PALPATION AND HYPOACTIVE IN ALL 4 QUADRANTS;ABDOMINAL BINDER IN PLACE;X3 SMALL ABDOMINAL INCISIONS NOTED WITH DRESSING CDI AND MIDLINE INCISION NOTED WITH DRESSING CDI;STRONG PEDAL PULSES;SKIN OTHERWISE INTACT;#20G TO LAC INFUSING D5 1/2 NS @ 125ML/HR,SITE APPEARS HEALTHY;#20G TO RFA FLUSHED AND PT;ACCUCHECK 259, PT COVERED WITH SLIDING SCALE NOVOLOG PER ORDER;NPO DIET REINFORCED;PT DENIES ANY ADDITIONAL NEEDS AT THIS TIME AND IS ENCOURAGED TO CALL FOR ASSISTANCE IF NEEDED;FALL PRECAUTIONS IN PLACE WITH CALL LIGHT IN REACH;WILL CONTINUE TO MONITOR
--- NOTE | 2020-05-07 08:39 | NUR ---
AT BEDSIDE DISCUSSING POC.
[2020-05-07 10:55] VITALS: BP 144/63
--- NOTE | 2020-05-07 11:10 | NUR ---
PT RESTING IN RECLINER WITH SPOUSE AT BEDSIDE;RESPIRATIONS EVEN AND UNLABORED ON RA;PT DENIES ANY CURRENT PAIN OR DISCOMFORTS;IV SITE REMAINS PATENT INFUSING D5 1/2 NS WITH EASE PER ORDER;ACCUCHECK 246, PT COVERED WITH SLIDING SCALE NOVOLOG PER ORDER;PT SPOUSE PROVIDED TRESIBA AND NOCOLOG HOME FLEX PENS WHICH WERE PLACED IN MED ROOM FOR PHARMACY VERIFICATION;NPO DIET REMAINS AT THIS TIME;ASSESSMENT UNCHANGED;PT DENIES ANY ADDITIONAL NEEDS;ENCOURAGED TO CALL FOR ASSISTANCE IF NEEDED;FALL PRECAUTIONS IN PLACE WITH CALL LIGHT IN REACH;WILL CONTINUE TO MONITOR
--- NOTE | 2020-05-07 14:34 | NUR ---
AT BEDSIDE DISCUSSING POC.
[2020-05-07 15:17] VITALS: BP 147/71
--- NOTE | 2020-05-07 15:20 | NUR ---
PT RESTING IN SEMI FOWLERS POSITION;RESPIRATIONS EVEN AND UNLABORED ON RA;PT DENIES ANY CURRENT PAIN OR DISCOMFORTS;ABDOMINAL DRESSINGS REMAIN CDI WITH ABDOMINAL BINDER IN PLACE;IV FLUIDS RUNNING INTO RFA AT THIS TIME PER REQUEST BY PATIENT;#20G TO LAC REMAINS PATENT;PT DENIES ANY ADDITIONAL NEEDS AT THIS TIME;ENCOURAGED TO CALL FOR ASSISTANCE IF NEEDED;FRESH ICE CHIPS PROVIDED AT THIS TIME;CALL LIGHT IN REACH;WILL CONTINUE TO MONITOR
[2020-05-07 19:17] VITALS: BP 147/83
--- NOTE | 2020-05-08 01:25 | NUR ---
Patient in bed throughout shift, resp. even and unlabored. No SOB noted. Resident self administer Novolog at bedtime with results of 227. On IV ABT, no adverse reactions noted. IV site in ZEINA with D51/2NS running and IV site in LFA saline lock. NPO. SCD in place of BLE. Abdomen bindr in place with dressing sites on abdomen. Fluids encouraged. Safety measures in place with call light in reach.
[2020-05-08 04:00] VITALS: BP 149/71
[2020-05-08 06:33] LABS: MEAN CELL VOLUME 95.6 fL CALC (80.0-100.0); MEAN CORPUSCULAR HGB 29.5 pG CALC (26.0-32.0); MEAN CORPUSCULAR HGB CONC 30.9 g/dL CAL (32.0-36.0); NEUT# 24.37 thou/uL (1.82-7.42); RED BLOOD COUNT 1.83 mill/uL (4.70-6.10)
[2020-05-08 06:45] LABS: HEMATOCRIT 17.5 % (39.0-50.0); HEMOGLOBIN 5.4 g/dl (14.0-18.0)
--- NOTE | 2020-05-08 06:47 | NUR ---
Lab was unnale to collect blood from patient. Blood collect from IV site on Left antecubital site. Request redraw Hgb with result from lab of critical result Hgb 5.4 and last result 05/07/2020 of Hgb 8.4. Lab notified.
[2020-05-08 06:56] LABS: ALBUMIN 2.6 g/dL (3.2-5.0); BILIRUBIN, TOTAL 0.6 mg/dL (0.0-1.4); CREATININE 1.4 mg/dL (0.7-1.3); POTASSIUM 3.5 mmol/l (3.5-5.1)
--- NOTE | 2020-05-08 07:00 | NUR ---
REPORT RECEIVED FROM CHUCK NUNES;PT OOB RESTING IN RECLINER;INTRODUCED SELF TO PT AND POC DISCUSSED;RESPIRATIONS EVEN AND UNLABORED ON RA;PT DENIES ANY CURRENT PAIN OR NEEDS;NPO DIET REINFORCED;PT ENCOURAGED TO CALL FOR ASSISTANCE IF NEEDED;CALL LIGHT IN REACH;WILL CONTINUE TO MONITOR
[2020-05-08 07:58] LABS: IMMATURE GRANULOCYTES 0.7 % (0.0-5.0); MEAN CELL VOLUME 96.8 fL CALC (80.0-100.0); MEAN CORPUSCULAR HGB 29.6 pG CALC (26.0-32.0); MEAN CORPUSCULAR HGB CONC 30.5 g/dL CAL (32.0-36.0); NEUT# 22.36 thou/uL (1.82-7.42); RED BLOOD COUNT 2.84 mill/uL (4.70-6.10); RED CELL DISTRI WIDTH 17.1 % (11.5-15.5)
[2020-05-08 08:05] LABS: ALBUMIN 3.1 g/dL (3.2-5.0); BILIRUBIN, TOTAL 0.8 mg/dL (0.0-1.4); CREATININE 1.5 mg/dL (0.7-1.3); POTASSIUM 3.7 mmol/l (3.5-5.1); TOTAL PROTEIN 5.9 g/dL (6.3-8.2)
[2020-05-08 08:06] LABS: HEMATOCRIT 27.5 % (39.0-50.0)
[2020-05-08 08:07] LABS: HEMOGLOBIN 8.4 g/dl (14.0-18.0)
[2020-05-08 08:50] VITALS: BP 167/71
--- NOTE | 2020-05-08 08:50 | NUR ---
PT RESTING IN RECLINER,A&O X3;VS OBTAINED AND ASSESSMENT COMPLETED;PT DENIES ANY CURRENT PAIN OR DISCOMFORTS,PAIN SCALE AND REPORTING EDUCATED;PT POD #2 HEMICOLLECTOMY;RESPIRATIONS EVEN AND UNLABORED ON RA,CLEAR LUNG SOUNDS;I.S. AT BEDSIDE AND PT EDUCATED ON USE, ENCOURAGED 10X PER HOUR;ABDOMEN DISTENDED/SOFT ON PALPATION AND ACTIVE IN ALL 4 QUADRANTS;DRY DRESSING CHANGED TO ABDOMEN PER ORDER, 20 MILI NOTED INTACT;ABDOMINAL BINDER IN PLACE;STRONG PEDAL PULSES;#20G TO RFA INFUSING D5 1/2 NS @ 125ML/HR,SITE APPEARS HEALTHY;#20G TO LAC FLUSHED AND PATENT,SITE APPEARS HEALTHY;ACCUCHECK 122;NPO DIET REINFORCED;PT DENIES ANY ADDITIONAL NEEDS AT THIS TIME AND IS ENCOURAGED TO CALL FOR ASSISTANCE IF NEEDED;FALL PRECAUTIONS IN PLACE WITH CALL LIGHT IN REACH;WILL CONTINUE TO MONITOR
--- NOTE | 2020-05-08 10:01 | NUR ---
AT BEDSIDE DISCUSSING POC.
--- NOTE | 2020-05-08 10:08 | NUR ---
AT BEDSIDE DISCUSSING POC.
[2020-05-08 10:30] VITALS: BP 150/71
--- NOTE | 2020-05-08 12:00 | NUR ---
PT OOB RESTING IN RECLINER;RESPIRATIONS REMAIN EVEN AND UNLABORED ON RA;PT DENIES ANY CURRENT PAIN OR NEEDS;ABDOMINAL DRESSINGS AND BINDER REMAIN IN PLACE;IV FLUIDS CONTINUE TO INFUSE TO RFA PER ORDER;ACCUCHECK 111;PT TOLERATED CLEAR LIQUID DIET WELL;ASSESSMENT REMAINS UNCHANGED AT THIS TIME;ENCOURAGED TO CALL FOR ASSISTANCE IF NEEDED;FALL PRECAUTIONS IN PLACE WITH CALL LIGHT IN REACH;WILL CONTINUE TO MONITOR
--- NOTE | 2020-05-08 12:21 | NUR ---
PT AMBULATING THE HALLWAY WITH A STEADY GAIT,WALKER, AND X1 ASSIST.
[2020-05-08 15:00] VITALS: BP 177/75
[2020-05-08 16:09] VITALS: BP 150/67
--- NOTE | 2020-05-08 16:10 | NUR ---
PT RESTING IN SEMI FOWLERS POSITION;RESPIRATIONS EVEN AND UNLABORED ON RA;PT DENIES ANY CURRENT PAIN OR NEEDS;IV FLUIDS CONTINUE TO INFUSE PER ORDER;PT RE-POSITIONED INTO RECLINER PER REQUEST;PT DENIES ANY ADDITIONAL NEEDS AND IS ENCOURAGED TO CALL FOR ASSISTANCE;CALL LIGHT IN REACH;WILL CONTINUE TO MONITOR
[2020-05-08 19:00] VITALS: BP 177/79
--- NOTE | 2020-05-08 19:35 | NUR ---
1935-PT SITTING IN CHAIR. NO S/S OF DISTRESS. PT ALERT AND ORIENTED. DENIES ANY NEEDS AT THIS TIME. ASSESSMENT COMPLETED. BED LOW AND LOCKED. CALL LIGHT AND PHONE WITHIN REACH. PT STABLE. WILL CONTINUE TO MONITOR.
--- NOTE | 2020-05-09 00:10 | NUR ---
0010-PT LYING IN BED, ASLEEP. NO S/S OF DISTRESS. BED LOW AND LOCKED. CALL LIGHT AND PHONE WITHIN REACH. PT STABLE. WILL CONTINUE TO MONITOR.
[2020-05-09 04:00] VITALS: BP 148/57
--- NOTE | 2020-05-09 04:15 | NUR ---
0415-PT LYING IN BED SEMI-AWAKE. URINAL EMPTIED. 300 CC CLEAR YELLOW URINE DEPOSITED IN TOILET. NO S/S OF DISTRESS. BED LOW AND LOCKED. CALL LIGHT AND PHONE WITHIN REACH. PT STABLE. WILL CONTINUE TO MONITOR.
--- NOTE | 2020-05-09 06:35 | NUR ---
0635-UPKEEP WORKER REPORTED TO ME THAT PT BLOOD GLUCOSE LEVEL IS 46. I IMMEDIATELY INTERVENED AND ASSESSED PT. I GAVE HIM 8 OZ APPLE JUICE RIGHT AWAY. PT STATES, "I FEEL FINE." NO SYMPTOMS. I WILL REASSESS BLOOD GLUCOSE IN 15 MINUTES. BED LOW AND LOCKED. CALL LIGHT AND PHONE WITHIN REACH. PT STABLE. WILL MONITOR.
--- NOTE | 2020-05-09 07:00 | NUR ---
REPORT RECEIVED FROM CHUCK WHITMORE;PT RESTING IN SEMI FOWLERS POSITION;RESPIRATIONS EVEN AND UNLABORED ON RA;PT DENIES ANY CURRENT PAIN OR NEEDS;ACCUCHECK 41, PT CURRENTLY RECEIVING DEXTROSE;PT REMAINS ASYMPTOMATIC AT THIS TIME;PT DENIES ANY CURRENT NEEDS AND IS ENCOURAGED TO CALL FOR ASSISTANCE IF NEEDED;FALL PRECAUTIONS IN PLACE WITH BED IN THE LOWEST POSITION AND CALL LIGHT IN REACH;WILL CONTINUE TO MONITOR
--- NOTE | 2020-05-09 07:09 | NUR ---
0655-PT BLOOD GLUCOSE DROPPED TO 41 FROM 46. I ADMINISTERED A BOLUS OF DEXTROSE. I GAVE REPORT TO [facility] DAY SHIFT NURSE, TIBURCIO. HE WILL HAVE HIS BLOOD GLUCOSE REASSESSED SOON THE BOLUS IS INFUSED.
[2020-05-09 08:15] VITALS: BP 151/71
--- NOTE | 2020-05-09 08:15 | NUR ---
PT RESTING AT BEDSIDE,A&O X3 AND NOTABLY DROWSY;VS OBTAINED AND ASSESSMENT COMPLETED;PT DENIES ANY CURRENT PAIN OR DISCOMFORTS,PAIN SCALE AND REPORTING EDUCATED;PT POD #3 HEMICOLLECTOMY;RESPIRATIONS SHALLOW ON RA,CLEAR LUNG SOUNDS;I.S. AT BEDSIDE AND PT ENCOURAGED USE 10X PER HOUR;ABDOMEN DISTENDED/SOFT ON PALPATION AND ACTIVE IN ALL 4 QUADRANTS;PT HAVING GAS BUT NO BM YET;ABDOMINAL DRESSINGS X4 CDI AND ABDOMINAL BINDER IN PLACE;STRONG PEDAL PULSES;SKIN INTACT;#20G TO LAC INFUSING D5 1/2 NS @ 75ML/HR,SITE APPEARS HEALTHY;ACCUCHECK 142 AT THIS TIME;PT DENIES ANY ADDITIONAL NEEDS AND IS ENCOURAGED TO CALL FOR ASSISTANCE;CALL LIGHT IN REACH;WILL CONTINUE TO MONITOR
--- NOTE | 2020-05-09 11:15 | NUR ---
PT RESTING IN SEMI FOWLERS POSITION;RESPIRATIONS EVEN AND UNLABORED ON RA;PT REPORTS FEELING BETTER AFTER TAKING A NAP;PT DENIES ANY CURRENT PAIN OR DISCOMFORTS;ABDOMINAL BINDER AND DRESSINGS IN PLACE AND INTACT;IV FLUIDS CONTINUE TO INFUSE WITH EASE PER ORDER;ACCUCHECK 198, PT COVERED WITH SLIDING SCALE NOVOLOG PER ORDER;PT DENIES ANY ADDITIONAL NEEDS AT THIS TIME;ENCOURAGED TO CALL FOR ASSISTANCE IF NEEDED;FALL PRECAUTIONS REMAIN IN PLACE WITH BED IN THE LOWEST POSITION AND CALL LIGHT IN REACH;WILL CONTINUE TO MONITOR
--- NOTE | 2020-05-09 12:11 | NUR ---
AT BEDSIDE DISCUSSING POC.
[2020-05-09 15:00] VITALS: BP 155/78
--- NOTE | 2020-05-09 15:20 | NUR ---
PT AMBULATING HALLWAY WITH A STEADY GAIT,WALKER AND 1 PERSON ASSIST;SPOUSE AT SIDE;RESPIRATIONS EVEN AND UNLABORED ON RA;PT DENIES ANY CURRENT PAIN OR DISCOMFORTS;PT REPORTS LARGE BOWEL MOVEMENT;IV SITE PATENT;PT RE-POSITIONED IN BED AT THIS TIME;PT DENIES ANY ADDITIONAL NEEDS AT THIS TIME;ENCOURAGED TO CALL FOR ASSISTANCE IF NEEDED;FALL PRECAUTIONS REMAIN IN PLACE WITH CALL LIGHT IN REACH;WILL CONTINUE TO MONITOR
[2020-05-09 19:00] VITALS: BP 169/74
--- NOTE | 2020-05-09 19:07 | NUR ---
PT REPORTS ABDOMINAL PAIN RATING 5/10 ON THE PAIN SCALE AND REQUESTS PAIN MEDICATION,PT MEDICATED WITH PRN PERCOCET 5MG PO AT THIS TIME;PT DENIES ANY ADDITIONAL NEEDS;ENCOURAGED TO CALL FOR ASSISTANCE IF NEEDED;CALL LIGHT IN REACH;WILL CONTINUE TO MONITOR
--- NOTE | 2020-05-09 19:30 | NUR ---
PATIENT IS ALERT AND ORIENTED X3. ABLE TO MAKE NEEDS KNOWN. RESPIRATIONS EASY ON ROOM AIR. SKIN WARM AND DRY. DRESSING AND ABDOMINAL BINDER CLEAN DRY AND IN PLACE. HAS HAD BM AND PASSING FLATULANCE. STANDBY ASSIST WITH WALKER. #20 r ac PATENT AND SALINE LOCKED WITH DRESSING CLEAN DRY AND INTACT. C/O PAIN 12/20. WAS MEDICATED JUST BEFORE MY SHIFT. PERCOCET HAS NOT TAKEN EFFECT YET. BED IN LOW POSITION. CALL LIGHT WITHIN REACH.
--- NOTE | 2020-05-10 | NUR ---
PATIENT RESTING WITH EYES CLOSED. RESPIRATIONS EASY. BED IN LOW POSITION. CALL LIGHT WITHIN REACH.
[2020-05-10 04:00] VITALS: BP 171/74
--- NOTE | 2020-05-10 04:46 | NUR ---
PATIENT RESTING WITH EYES CLOSED. RESPIRATIONS EASY ON ROOM AIR. BED IN LOW POSITION. CALL LIGHT WITHIN REACH.
[2020-05-10 07:32] VITALS: BP 155/71
--- NOTE | 2020-05-10 07:32 | NUR ---
RECIEVED REPORT FROM Mack RICHARDSON RN. PT SLEEPING IN LOW FOWLERS POSITION UPON ENTERING ROOM. PT EASY TO AWAKEN. INTRODUCED SELF TO PT AND DISCUSSED POC. ASESSMENT AND VITALS COMPLETED AT THIS TIME. BP 155/71, HR 65, O2 97% ON ROOM AIR. RESPIRATIONS ARE EVEN AND UNLABORED WITH NO SIGNS OF DISTRESS NOTED.LUNG SOUNDS ARE CLEAR. HEART RHYTHM IS NORMAL. BOWEL SOUND SARE ACTIVE IN ALL QUADRANTS, LAST REPORTED BM 05/09/20. RADIAL AND PEDAL PULSES ARE STRONG WITH NORMAL CAPILLARY REFILL. #20 IN LAC FLUSHED, SITE APPEARS HEALTHY AND PATENT. PT PRESENTS WITH ONE MIDLINE SURGICAL INCISION AND 3 SMALL SURGICAL INCISIONS. DRESSING REMAIN CDI WITH ABD BINDER IN PLACE. PT COMPLAINS OF 5/410 BURNING IN ABD. PT TO BE MEDICATED PER EMAR. PT DENIES OF ANY ADDITIONAL NEEDS AT THIS TIME. ALL SAFETY PRECAUTIONS ARE IN PLACE WIHT CALL LIGHT IN REACH. WILL CONTINUE TO MONITOR
[2020-05-10 08:36] LABS: HEMATOCRIT 30.5 % (39.0-50.0); HEMOGLOBIN 9.5 g/dl (14.0-18.0); MEAN CELL VOLUME 93.3 fL CALC (80.0-100.0); MEAN CORPUSCULAR HGB 29.1 pG CALC (26.0-32.0); MEAN CORPUSCULAR HGB CONC 31.1 g/dL CAL (32.0-36.0); RED BLOOD COUNT 3.27 mill/uL (4.70-6.10); RED CELL DISTRI WIDTH 16.5 % (11.5-15.5)
[2020-05-10 08:51] LABS: ANION GAP 11 (6-22 (CALC)); BUN 14 mg/dL (8-23); BUN/CREATININE RATIO 11 (12-20 (CALC)); CARBON DIOXIDE 26 mmol/l (22-30); CHLORIDE 104 mmol/l (95-108); CREATININE 1.3 mg/dL (0.7-1.3); GFR 54 ML/MIN (>=60 (CALC)); GFR FOR AFR.AMER. > 60 ML/MIN (>=60 (CALC)); POTASSIUM 3.6 mmol/l (3.5-5.1); SODIUM 138 mmol/l (137-146)
[2020-05-10 09:04] VITALS: BP 155/71
[2020-05-10] MEDS ORDERED: PERCOCET1 TA4 PO (10:08)
[2020-05-10] MEDS ORDERED: ZOFRAN4 MG/TAB PO (10:08)
--- NOTE | 2020-05-10 12:08 | NUR ---
PT SITTING UP ON SIDE OF BED UPON ENTERING ROOM.PT IS A/O X3. DISCHARGE PAPER WORK COMPLETED. PT REQUEST TO WAIT FOR TO EDUCATED ON DISCHARGE PAPERWORK. AWAITING FOR FOR EDUCTAED ON DISCHARGE PAPERWORK. ALL SFAETY PRECAUTIONS ARE IN PLACE WITH CALL LIGHT IN REACH. WILL CONTINUE TO MONITOR
--- NOTE | 2020-05-10 13:10 | NUR ---
PT EDUCATED ON DISCHARGE PAPERWORK AND NEW MEDCATION PERCOCET AND ZOFRAN. PT VERBALIZED UNDERSTANDING. IV REMOVED WITH CATATHER STILL INTACT. PT TOLERATED WELL. ALL SAFETY PRECAUTIONS ARE IN PLACE WITH CALL LIGHT IN REACH. WILL CONTINUE TO MONITOR
--- NOTE | 2020-05-10 13:13 | NUR ---
Discharge instructions given. Patient verbalizes understanding of same. Discharged in stable condition via Wheelchair to Home with staff. All belongings sent with pt. PT DISCHARGE WITH DISCHARGED VIA WHEELCHAIR IN STABLE CONDITION ACCOMPAINED BY GREGORY LIU. PT DISCHARGE WITH ALL DISCHARGE PAPERWORK AND HOME MEDICATIONS.
== END 2020-05-10 13:12 | disposition home or self-care (01) | DRG 330 ==
LOC: ENDO 07:02 → ORM 08:00 → MS2 09:25 → ENDO 10:05 → MS2 05-06 15:40
PROVIDERS: Internal Medicine; Nurse Practitioner; ADMIT Surgery; ATTEND Surgery
PROC: 0DBC8ZX Excision of Ileocecal Valve, Via Natural or Artificial Opening Endoscopic, Diagnostic (ICD-10-PCS; 2020-05-05)
PROC: 0DBL8ZX Excision of Transverse Colon, Via Natural or Artificial Opening Endoscopic, Diagnostic (ICD-10-PCS; 2020-05-05)
PROC: 0DTF0ZZ Resection of Right Large Intestine, Open Approach (ICD-10-PCS; principal; 2020-05-06)
DX: D12.0 Benign neoplasm of cecum (principal); K92.2 Gastrointestinal hemorrhage, unspecified; K57.30 Diverticulosis of large intestine without perforation or abscess without bleeding; D50.0 Iron deficiency anemia secondary to blood loss (chronic); D17.5 Benign lipomatous neoplasm of intra-abdominal organs; K63.5 Polyp of colon; I12.9 Hypertensive chronic kidney disease with stage 1 through stage 4 chronic kidney disease, or unspecified chronic kidney disease; E11.22 Type 2 diabetes mellitus with diabetic chronic kidney disease; E11.649 Type 2 diabetes mellitus with hypoglycemia without coma; N18.3 Chronic kidney disease, stage 3 (moderate); I25.10 Atherosclerotic heart disease of native coronary artery without angina pectoris; I48.0 Paroxysmal atrial fibrillation; E78.5 Hyperlipidemia, unspecified; Z79.01 Long term (current) use of anticoagulants; Z87.891 Personal history of nicotine dependence; Z79.4 Long term (current) use of insulin; Z95.0 Presence of cardiac pacemaker; Z95.5 Presence of coronary angioplasty implant and graft; D64.9 Anemia, unspecified; R06.02 Shortness of breath; R53.1 Weakness; K29.70 Gastritis, unspecified, without bleeding; N18.9 Chronic kidney disease, unspecified; I48.91 Unspecified atrial fibrillation; Z86.010 Personal history of colon polyps; Z20.828 Contact with and (suspected) exposure to other viral communicable diseases
CPT/HCPCS: J0131; J1100

== ENCOUNTER 2020-07-03 15:23 | Inpatient (IN) | payer MEDICARE, BC ==
[~2020-07-03] VITALS: Ht 182.9 cm; Wt 92.0 kg
[~2020-07-03 15:23] MED LIST changes: +PERCOCET1 TA4 PO; +ZOFRAN4 MG/TAB PO
--- NOTE | 2020-07-03 15:23 | NUR ---
PATIENT TO ROOM VIA EMS STRETCHER. PATIENT ON 3L NC. MD REQUESTING PT HAVE ABG ON ROOM AIR. SP02 90% ON ROOM AIR.
--- NOTE | 2020-07-03 16:00 | NUR ---
PATIENT RESTING IN STRETCHER IN NAD AND DENIES ANY NEEDS. PATIENT IS AWARE OF PLAN OF CARE AND WAIT TIME.
[2020-07-03 16:03] LABS: HEMATOCRIT 38.3 % (39.0-50.0); HEMOGLOBIN 12.5 g/dl (14.0-18.0); IMMATURE GRANULOCYTES 0.5 % (0.0-5.0); MEAN CORPUSCULAR HGB 29.7 pG CALC (26.0-32.0); MEAN CORPUSCULAR HGB CONC 32.6 g/dL CAL (32.0-36.0); NEUT# 5.53 thou/uL (1.82-7.42); RED BLOOD COUNT 4.21 mill/uL (4.70-6.10)
--- NOTE | 2020-07-03 16:25 | NUR ---
IV ABX AND FLUIDS INITITATED TO LAC SITE. INFUSING WITHOUT DIFFICULTY. REPEAT ACCUCHECK COMPLETED-- 153. DR RAYMUNDO AND JAIME PATINO AWARE. PT RESTING ON STRETCHER WITH NASAL CANNULA IN PLACE @ 3L VIA NC SAO2 93-94% PLAN OF CARE DISCUSSED WITH PT. VERBALIZED UNDERSTANDING. DENIES ANY NEEDS. CALL ANGEL AWAD.
[2020-07-03 16:32] LABS: ALBUMIN 3.6 g/dL (3.2-5.0); BILIRUBIN, TOTAL 1.1 mg/dL (0.0-1.4); CREATININE 1.9 mg/dL (0.7-1.3); POTASSIUM 2.9 mmol/l (3.5-5.1); TOTAL PROTEIN 7.2 g/dL (6.3-8.2)
[2020-07-03 16:43] LABS: C-REACTIVE PROTEIN 15.7 mg/dL (0-0.9)
--- NOTE | 2020-07-03 17:20 | NUR ---
PATIENT RESTING IN STRETCHER IN NAD, SP02 93% ON 3L NC. PATIENT AWARE OF PENDING RESULTS AND WAIT TIME. IV ABX INFUSING WITH NO DIFFICULTY. RESP RATE OF 22
--- NOTE | 2020-07-03 18:00 | NUR ---
MD AT BEDSIDE TO DISCUSS RESULTS AND PLAN FOR ADMISSION.
--- NOTE | 2020-07-03 18:48 | NUR ---
PATIENT REPORT TO CHUCK ELIZONDO.
--- NOTE | 2020-07-03 18:50 | NUR ---
ATTEMPTED TO CALL PATIENT REPORT, NURSE NOT HERE AT THIS TIME.
--- NOTE | 2020-07-03 19:11 | NUR ---
ATTEMPTED TO CALL REPORT, NURSE UNABLE TO AT THIS TIME.
--- NOTE | 2020-07-03 19:17 | NUR ---
HAND OFF REPORT RECEIVED FROM SHANICE, PATIENT AWAITING INPATIENT BED.
--- NOTE | 2020-07-03 19:19 | NUR ---
TELEPHONE REPORT RECEIVED DAVID RICHARDSON RN IN ED, ROOM 283 ASSIGNED AND PREPARED TO RECEIVE PT.
--- NOTE | 2020-07-03 19:21 | NUR ---
HAND OFF REPORT GIVEN TO LEI. PATIENT TO INPATIENT TREATMENT ROOM.
--- NOTE | 2020-07-03 19:34 | NUR ---
PT ARRIVES TO UNIT AT 1934 VIA STRETCHER, ACCOMPANIED BY Cooper RICHARDSON RN, ADMITTED TO ROOM 283. PT AMBULATORY TO BED. ORIENTED TO UNIT AND ROOM. CALL JENKINS WITHIN REACH, AGREES TO CALL PRN.
[2020-07-03 19:35] VITALS: BP 120/81
--- NOTE | 2020-07-03 22:45 | NUR ---
ADMISSION ASSESMENT COMPLETE. SCHEDULED MEDICATION ADMINSTERED, SEE E-MAR. PLAN OF CARE REVIEWED, PT VERBALIZES UNDERSTANDING AND DENIES QUESTIONS. FRESH WATER AND SODA PROVIDED. PT DENIES FURTHER NEEDS AT THIS TIME. CALL JENKINS WITHIN REACH, AGREES TO CALL PRN.
[2020-07-04] VITALS: BP 166/78
--- NOTE | 2020-07-04 02:45 | NUR ---
PT APPEARS TO BE SLEEPING COMFORTABLY, LAYING IN BED WITH EYES CLOSED, RESPIRATIONS REGULAR AND UNLABORED, NO APPARENT DISTRESS, CALL JENKINS REMAINS WITHIN REACH.
[2020-07-04 04:50] VITALS: BP 132/75
[2020-07-04 05:51] LABS: HEMATOCRIT 42.5 % (39.0-50.0); HEMOGLOBIN 13.4 g/dl (14.0-18.0); IMMATURE GRANULOCYTES 0.9 % (0.0-5.0); MEAN CORPUSCULAR HGB 28.7 pG CALC (26.0-32.0); MEAN CORPUSCULAR HGB CONC 31.5 g/dL CAL (32.0-36.0); NEUT# 4.54 thou/uL (1.82-7.42); RED BLOOD COUNT 4.67 mill/uL (4.70-6.10)
--- NOTE | 2020-07-04 06:17 | NUR ---
PT RESTING IN BED COMFORTABLY, PHYSICAL ASSESMENT REMAINS GROSSLY UNCHANGED FROM BASELINE. HEMODYNAMICS STABLE. PT DENIES NEEDS AT THIS TIME. CALL JENKINS WITHIN REACH, AGREES TO CALL PRN.
[2020-07-04 06:41] LABS: ALBUMIN 3.2 g/dL (3.2-5.0); BILIRUBIN, TOTAL 0.7 mg/dL (0.0-1.4); CREATININE 1.7 mg/dL (0.7-1.3); TOTAL PROTEIN 6.4 g/dL (6.3-8.2)
[2020-07-04 06:53] LABS: C-REACTIVE PROTEIN 18.9 mg/dL (0-0.9); POTASSIUM 3.8 mmol/l (3.5-5.1)
--- NOTE | 2020-07-04 08:08 | NUR ---
REPORT WAS RECEIVED FROM LEI. PATIENT IS SITTING IN THE RECLINER. PATIENT DENIES ANY PAIN AT THIS TIME. PATIENT STATED HE FEELS BETTER TODAY. LUNGS SOUND/DIMINISHED. O2 AT 2L VIA NC. TELE IN PLACE. TELE # [id number]. PT STATED HE HAS NOT HAD A BM FOR A FEW DAYS. PATEINT DENIES ANY OTHER NEEDS AT THIS TIME. CALL LIGHT IN REACH.
[2020-07-04 08:32] VITALS: BP 139/72
[2020-07-04 10:30] VITALS: BP 139/70
--- NOTE | 2020-07-04 12:03 | NUR ---
PATIENT IS SITTING IN THE RECLINER EATING HIS LUNCH WITH NO S/S OF DISTRESS NOTED. PATIENT DENIES NEEDS AT THIS TIME. CALL LIGHT IN REACH.
[2020-07-04 15:00] VITALS: BP 151/75
--- NOTE | 2020-07-04 15:20 | NUR ---
PATIENT IS RESTING IN BED WITH NO S/S OF DISTRESS NOTED. ICE [place] PROVIDED PER PT REQUEST. PT DENIES ANY OTHER NEEDS AT THIS TIME. CALL LIGHT IN REACH.
--- NOTE | 2020-07-04 19:00 | NUR ---
REPORT RECEIVED FROM Philip BARNETT RN, CARE OF PT ASSUMED AT THIS TIME.
[2020-07-04 19:10] VITALS: BP 139/69
--- NOTE | 2020-07-04 21:40 | NUR ---
PHYSICAL ASSESMENT COMPLETE. SCHEDULED MEDICATION ADMINSTERED, SEE E-MAR. PLAN OF CARE REVIEWED, PT VERBALIZES UNDERSTANDING AND DENIES QUESTIONS. FRESH WATER PROVIDED. PT VERBALIZES CONCERNS REGARDING INSULIN DOSES ON HOSPITAL SLIDING SCALE BEING TO LOW TO CONTROL HIS GLUCOSE. STATES "I TAKE A LOT MORE AT HOME", PHARMACY CONSULT ORDERED TO FURTHER INVESTIGATE PT'S HOME INSULIN DOSING AND ANY POSSIBLE CHANGES THAT SHOULD BE MADE FOR ADEQUATE GLUCOSE CONTROL. PT DENIES FURTHER NEEDS AT THIS TIME. CALL JENKINS WITHIN REACH, AGREES TO CALL PRN.
[2020-07-05 00:15] VITALS: BP 146/79
--- NOTE | 2020-07-05 00:30 | NUR ---
Sp02 77% WHEN CHECKED, PT ASYMPTOMATIC, NO RESPIRATORY DISTRESS. 02 INCREASED TO 8L/MIN VIA NC. SpO2 90-91% DR. SIBLEY MADE AWARE. ORDER IS TO TRY TO KEEP Sp02 GREATER THAN 90% AND ABG IN AM. CALL JENKINS WITHIN REACH, AGREES TO CALL PRN.
--- NOTE | 2020-07-05 03:05 | NUR ---
AM ABG ORDER SCHEDULED FOR 0700 PER [facility] RT REQUEST.
[2020-07-05 04:05] VITALS: BP 154/69
--- NOTE | 2020-07-05 05:00 | NUR ---
PATIENT CALLED AND STATED TO THE INDUSTRIAL GAS FITTER THAT HE THOUGHT HIS SUGAR WAS DROPPING.PATIENT WAS NOTED TO BE SHAKEY AND ACCU-CHECK WAS DONE AND FOUND TO BE 44. IV D10 WAS HUNG VIA LEFT AC IV SITE PER PROTOCOL. PATIENT TAKING PEANUT BUTTER CRACJKERS AND OJ BY MOUTH. PATIENT STATES THAT HE IS STARTING TO FEEL BETTER. WILL CONT TO MONITOR.
--- NOTE | 2020-07-05 05:23 | NUR ---
D10 INFUSION COMPLETED-PATIENT RESTING IN BED WITH O2 VIA NASAL CANNULA IN PLACE. PATIENT STATES THAT HE IS FEELING BETTER. ACCU-CHECK NOW 121. AWILL CONT TO MONITOR.
--- NOTE | 2020-07-05 06:35 | NUR ---
Sp02 91% WITH 15 L/MIN HUMIDIFIED VIA HIGH FLOW NASAL CANNULA.
[2020-07-05 08:00] VITALS: BP 156/76
--- NOTE | 2020-07-05 09:00 | NUR ---
PT SEEN AWAKE, ALERT, RESTING IN THE BED. LUNGS ARE DIMINISHED IN BASES, PT WAS ON 15 LPM HIGH FLOW CANNULA, SATS WERE 76%. RT CORLEY AND DR SIBLEY MADE AWARE, PT PLACED ON VERY HIGH FLOW 40 LPM AND EVENTUALLY NEEDED C PAP. PT IS DOING MUCH BETTER ON CPAP, ALTHOUGH HE DESATS VERY SOON AFTER IT IS REMOVED. SATS NOW IN LOW 90s.
[2020-07-05 10:30] VITALS: BP 175/74
--- NOTE | 2020-07-05 11:13 | NUR ---
PT PLACED ON VAPOTHERM AT APROX 1030. SPO2 ON 40L/MIN, FIO2 100% WAS 84%. PT PLACED ON BIPAP 07/22 AT APROX 1100. FIO2 IS AT 75%. SPO2 93%.
--- NOTE | 2020-07-05 13:00 | NUR ---
PT CONTINUES ON BIPAP WITH SATS IN THE UPPER 80s TO LOW 90s. PT DOES NOT COMPLAIN OF SHORTNESS OF BREATH. PT WITH DIFFICULTY VOIDING THIS AFTERNOON, FINALLY DID VOID 200. PT ABLE TO STAND AT BEDSIDE FOR VOIDING, BUT HE CONTINUES TO DESAT VERY QUICKLY.
[2020-07-05 15:00] VITALS: BP 185/75
--- NOTE | 2020-07-05 18:30 | NUR ---
BIPAP TAKEN OFF FOR DINNER, PT ABLE TO TOLERATE FOR SEVERAL MINUTES ON HIGH FLOW CANNULA. SOON AFTER TAKING OFF, PT REQUESTED BACK ON , WAS REPOSITIONED IN THE BED AND IS COMFORTABLE AGAIN.
[2020-07-05 20:29] VITALS: BP 154/94
--- NOTE | 2020-07-05 22:48 | NUR ---
PHYSICAL ASSESMENT COMPLETE. PT CURRENTLY DENIES PAIN OR DISCOMFORT. SCHEDULED MEDICATIONS AND PRN MEDICATION ADMINISTERED, SEE E-MAR. PT CONTINUES ON BIPAP WITH STATS IN THE UPPER 80S TO LOWER 90S. NO C/O OF SOB. PT DENIES ANY NEEDS AT THIS TIME. PLAN OF CARE REVIEWED, PT DENIES QUESTIONS, VERBALIZES UNDERSTANDING. ITEMS WITHIN REACH, BED LOCKED IN LOW POSITION W/ BEDRAILS UP X2. CALL JENKINS WITHIN REACH, AGREES TO CALL PRN.
[2020-07-06] VITALS (20 sets, daily range): BP systolic 105–193; BP diastolic 61–102
--- NOTE | 2020-07-06 04:12 | NUR ---
PATIENT REMAINS VERY CONFUSED AND DIORIENTED. REMAINS ON BIPAP STATING 93.
--- NOTE | 2020-07-06 05:05 | NUR ---
RESTRAITS PLACED ON PT. PT WAS TRYING TO REMOVE BIPAP MASK.
[2020-07-06 06:52] LABS: HEMATOCRIT 43.5 % (39.0-50.0); HEMOGLOBIN 14.2 g/dl (14.0-18.0); MEAN CELL VOLUME 90.2 fL CALC (80.0-100.0); MEAN CORPUSCULAR HGB 29.5 pG CALC (26.0-32.0); MEAN CORPUSCULAR HGB CONC 32.6 g/dL CAL (32.0-36.0); RED BLOOD COUNT 4.82 mill/uL (4.70-6.10); RED CELL DISTRI WIDTH 18.6 % (11.5-15.5)
[2020-07-06 07:10] LABS: BILIRUBIN, TOTAL 0.8 mg/dL (0.0-1.4); CREATININE 1.4 mg/dL (0.7-1.3); POTASSIUM 3.5 mmol/l (3.5-5.1); TOTAL PROTEIN 6.1 g/dL (6.3-8.2)
--- NOTE | 2020-07-06 07:45 | NUR ---
PT CONTINUES TO RESIST BIPAP MASK, RESTRAINTS IN PLACE NOW TO STOP THAT FROM HAPPENING. PT WILL BE TRANSFERRED TO ICU PER ROWENA PATINO, HAS DETERIORATED SIGNIFICANTLY IN PAST 24 HOURS.
--- NOTE | 2020-07-06 08:52 | NUR ---
PT ARRIVED VIA BED FROM MED SURG FOR PLANNED INTUBATION PER PRACTITIONER AWARE.
--- NOTE | 2020-07-06 08:55 | NUR ---
PT ARRIVED VIA BED TO ROOM. BI PAP IN PLACE WITH PLAN TO INTUBATE, PER PRACTITIONER SPOKE WITH SPOUSE THIS AM WHO WANTS EVEYTHING DONE AT THIS TIME AND CAN/WILL RE-EVAL PRN. 20G RAC IV ACCESS AND 20G LAC INTACT WELL. RT AND MD AT BEDSIDE FOR POC
--- NOTE | 2020-07-06 10:00 | NUR ---
PT INTUBATED WITH 7.5F 23 AT LIP, 12F OG PLACCED WITH PLACEMENT VERIFIED BY 2 RN'S, 16F WILSON PLACED USING STERILE TECHNIQUE WITH IMMEDIATE RETURN OF CLEAR YELLOW URINE WITH SLIGHT SEDIMENT NOTED. CATH SECURITY DEVICE APPLIED TO R UPPER THIGH, PROPOFOL SEDATION STARTED PER PROTOCOL, PT SEDATED AND COMFORTABLE NO S/S OF DISTRESS SINCE INTUBATED.
--- NOTE | 2020-07-06 11:00 | NUR ---
ACCMARNIE 38 MD AWARE AND D10 250 ML GIVENIV BOLUS THEN WILL START [id number] STARTED AT RATE ORDERED BY . WILL CONTINUE TO MONITOR.
--- NOTE | 2020-07-06 12:00 | NUR ---
REPEAT ACCU CHECK 121 EARLIER WILL CONTINUE TO MONITOR
[2020-07-06 12:16] LABS: PROTHROMBIN TIME 10.4 SECONDS (9.0-12.5)
--- NOTE | 2020-07-06 13:00 | NUR ---
SPOKE WITH SPOUSE VIA TELEPHONE AND INFORMED HER THAT [facility] STAYS SAME FOR ADMISSION, UPDATE REGARDING INTUBTAION SEDATION ETC...ALL QUESTIONS ANSWERED, NO COMPLAINS OFFERED, NO S/S OF DISTRESS.
--- NOTE | 2020-07-06 13:55 | NUR ---
PT RESTING NO CHANGES NOTED, PROPOFOL TOLERATED WITH NO TITRATION REQUIRED AT THIS TIME, WILL CONTINUE TO MONITOR
--- NOTE | 2020-07-06 14:20 | NUR ---
PT RESTING, IVF INFUSING ORDERED, OG INTACT AND MEDICATED /CLAMPED PRN FOR MEDICAITON ADMINSTRATION
--- NOTE | 2020-07-06 16:30 | NUR ---
CALLED [facility] WAS ON HOLD FOR 18 MIN, HUNG UP AND TRIED AGAIN AFTER HOLD FOR 16 MIN GOT DISCONNECTED WILL TRY AGAIN SHORTLY.
--- NOTE | 2020-07-06 17:28 | NUR ---
INITIATED TRANSFER TO [facility] PER REQUEST, REF#[id number] THEY WILL CALL BACK
--- NOTE | 2020-07-06 18:02 | NUR ---
CONTINUE TO AWAIT WORD FROM [facility] REGARDING TRANSFER
--- NOTE | 2020-07-06 18:19 | NUR ---
TO TOUCH BASE WITH PT SPOUSE REGARDING TRANSFER.
--- NOTE | 2020-07-06 18:36 | NUR ---
FACE SHEET FAXED TO [facility]
--- NOTE | 2020-07-06 19:00 | NUR ---
REPORT RECEIVED FROM Mack SPENCE RN, CARE OF PT ASSUMED AT THIS TIME.
--- NOTE | 2020-07-06 20:09 | NUR ---
MRS. KEAGAN YUAN CALLS NURSES STATION, PROVIDES APPROPRITAE COMMUNICATION CODE. PTS CURRENT STATUS, PLAN OF CARE AND PLANS FOR PENDING TRANSFER DISCUSSED AND QUESTIONS ANSWERED. REQUEST RETURN CALL FROM DR. SANTAMARIA WHEN AVAILABLE. DENIES FURTHER NEEDS OR QUESTIONS. MRS. BALBUENA REQUEST AND CONTACT INFORMATION PROVIDED TO DR. SANTAMARIA.
--- NOTE | 2020-07-06 21:15 | NUR ---
RECEIVED NOTIFICATION FROM DR. SANTAMARIA THAT PATIENT HAD BEEN ACCEPTED BY [facility].
--- NOTE | 2020-07-06 21:20 | NUR ---
PT MEDICATED ORDERED. OG TUBE PLACEMENT VERIFIED VIA AUSCULTATION. FLUSHED WITH WATER BEFORE AND AFTER MEDICATION ADMINISTRATION, SUCTION HELD AT THIS TIME. MONITORS IN PLACE. VSS. WILL CONTINUE TO MONITOR.
--- NOTE | 2020-07-06 21:45 | NUR ---
SPOKE WITH ICU NURSE RIDDHI PETERS TO VERIFY ROOM NUMBER AND ACCEPTING PHYSICIAN. VERIFIED ROOM 522, DR. DOWNING.
--- NOTE | 2020-07-06 22:10 | NUR ---
TELEPHONE CONSENT TO TRANSFER PT RECEIVED FROM PT'S KEAGAN YUAN, WITNESSED BY Joanne BROWER RN.
--- NOTE | 2020-07-06 22:25 | NUR ---
[facility] NOTIFIED OF IN-PATIENT TRANSFER.
--- NOTE | 2020-07-06 22:45 | NUR ---
CALLED [facility], REQUESTING TRANSFER. ETA GIVEN OF 40 MINS.
--- NOTE | 2020-07-06 22:55 | NUR ---
PT REPOSITIONED IN BED. NO BM NOTED AT THIS TIME. WILSON REMAINS PATENT DRAINING TO GRAVITY. LIS REAPPLIED TO OG. MONITORS IN PLACE. ORAL CARE PROVIDED. WILL CONTINUE TO MONITOR.
--- NOTE | 2020-07-06 23:30 | NUR ---
[facility] ARRIVES TO PROFESSOR OF HISTORICAL THEOLOGY PATIENT.
--- NOTE | 2020-07-06 23:48 | NUR ---
[facility] TRANSFER STAFF REQUEST ADDITIONAL BOTTLE OF PROPOFOL. ADDITIONAL BOTTLE PROPOFOL PROVIDED BY Philip MEEKS RN.
--- NOTE | 2020-07-07 00:25 | NUR ---
TELEPHONE REPORT GUJUNE TO [facility] AT [facility] ICU.
== END 2020-07-07 00:05 | DRG 208 ==
LOC: ED 15:23 → ED-I 17:36 → ED 17:54 → MS2 17:55 → ICU 07-06 08:55
PROVIDERS: Family Medicine; Internal Medicine; Nurse Practitioner Family; ADMIT Internal Medicine; ATTEND Internal Medicine
PROC: XW033E5 Introduction of Remdesivir Anti-infective into Peripheral Vein, Percutaneous Approach, New Technology Group 5 (ICD-10-PCS; principal; 2020-07-04)
PROC: 5A1935Z Respiratory Ventilation, Less than 24 Consecutive Hours (ICD-10-PCS; 2020-07-06)
PROC: 0BH17EZ Insertion of Endotracheal Airway into Trachea, Via Natural or Artificial Opening (ICD-10-PCS; 2020-07-06)
DX: U07.1 COVID-19 (principal); J12.89 Other viral pneumonia; J96.00 Acute respiratory failure, unspecified whether with hypoxia or hypercapnia; N17.9 Acute kidney failure, unspecified; I12.9 Hypertensive chronic kidney disease with stage 1 through stage 4 chronic kidney disease, or unspecified chronic kidney disease; E11.22 Type 2 diabetes mellitus with diabetic chronic kidney disease; N18.9 Chronic kidney disease, unspecified; I25.10 Atherosclerotic heart disease of native coronary artery without angina pectoris; E78.5 Hyperlipidemia, unspecified; E11.40 Type 2 diabetes mellitus with diabetic neuropathy, unspecified; E87.6 Hypokalemia; M10.9 Gout, unspecified; Z87.891 Personal history of nicotine dependence; Z95.0 Presence of cardiac pacemaker; Z79.4 Long term (current) use of insulin; Z95.5 Presence of coronary angioplasty implant and graft
CPT/HCPCS: J1650; Q9967; S0164